=== PATIENT | female | born 2000 | race Caucasian/White ===

== ENCOUNTER 2020-05-27 16:35 | Emergency (ER) | payer OTHER ==
[~2020-05-27] VITALS: Ht 160 cm; Wt 81.8 kg
[2020-05-27] MEDS ORDERED: LEVOTAB11 PO (17:11)
[2020-05-27] MEDS ORDERED: FLUO20CA22 PO (17:11)
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
[2020-05-27 19:15] VITALS: BP 116/68
--- NOTE | 2020-05-29 12:31 | ED PDOC ---
Post-Departure Follow-Up certified letter sent to patient regarding radiology report Danita Robles MD May 29, 2020 12:31
== END 2020-05-27 19:27 | disposition home or self-care (01) ==
LOC: M ED 16:35 → EDBD 16:35 → M ED 19:27
DX: S09.90XA Unspecified injury of head, initial encounter (principal); S16.1XXA Strain of muscle, fascia and tendon at neck level, initial encounter; V49.49XA Driver injured in collision with other motor vehicles in traffic accident, initial encounter; Y92.410 Unspecified street and highway as the place of occurrence of the external cause; F41.9 Anxiety disorder, unspecified; Z79.899 Other long term (current) drug therapy; Z79.3 Long term (current) use of hormonal contraceptives

== ENCOUNTER → 2020-06-15 | Outpatient (REF) | payer OTHER ==
[~2020-06-15] MED LIST: FLUO20CA22 PO; LEVOTAB11 PO
[2020-06-15 18:50] LABS: BASO % 0.8 % (0.0-1.0); EOS # 0.1 10^3/uL (0.0-0.5); EOS % 1.9 % (0.0-3.0); HEMATOCRIT 40.9 % (36.0-47.0); HEMOGLOBIN 13.4 g/dl (12.0-15.5); LYMPH # 1.9 10^3/uL (1.5-5.0); LYMPH % 37.2 % (24.0-44.0); MEAN CORPUSCULAR HEMOGLOBIN 28.1 pg (27.0-33.0); MEAN CORPUSCULAR HGB CONC 32.8 g/dl (32.0-36.5); MEAN CORPUSCULAR VOLUME 85.7 fl (80.0-96.0); MONO # 0.6 10^3/uL (0.0-0.8); MONO % 11.6 % (0.0-5.0); NEUTROPHILS # 2.5 10^3/uL (1.5-8.5); NEUTROPHILS % 48.3 % (36.0-66.0); PLATELET COUNT, AUTOMATED 276 10^3/uL (150-450); RED BLOOD COUNT 4.77 10^6/uL (4.00-5.40); WHITE BLOOD COUNT 5.2 10^3/uL (4.0-10.0)
[2020-06-15 19:13] LABS: FREE T4 0.97 NG/DL (0.78-1.33)
[2020-06-15 19:16] LABS: THYROGLOBULIN ANTIBODY < 15.0 U/ML (<60.0); THYROID PEROXIDASE ANTIBODY < 28.0 U/ML (<60.0)
== END ==
LOC: M LAB REF 16:13
PROVIDERS: ATTEND Physician Assistant
DX: E04.1 Nontoxic single thyroid nodule (principal)

== ENCOUNTER → 2020-06-26 | Outpatient (CLI) | payer MEDICAID, SELFPAY | LOC: M LABSMTC 14:05 | PROVIDERS: ATTEND Pediatrics | DX: Z20.822 Contact with and (suspected) exposure to COVID-19 (principal) ==

== ENCOUNTER → 2020-07-05 | Outpatient (CLI) | payer OTHER, MEDICAID ==
--- NOTE | 2020-07-05 10:31 | REP ---
INDICATION: THYROID NODULE. Nontoxic single thyroid nodule. COMPARISON: Comparison CT study of the cervical spine 27 May 2020.. TECHNIQUE: High-resolution bilateral thyroid sonography. FINDINGS: Thyroid isthmus is 0.2 cm in thickness. Right lobe dimensions are 4.2 x 1.8 x 1.2 cm. Left lobe measures 3.7 x 1.5 x 1.3 cm. There is a hypoechoic solid nodule in the left lobe corresponding to the CT findings. This measures 1.3 x 0.8 x 1.0 cm in diameter. It has well-defined margins. No definite microcalcifications. There is a 3 mm hypoechoic cyst in the upper pole on the left and 2 tiny cysts are seen in the right measuring 3 and 2 mm respectively. No other solid nodule is seen. IMPRESSION: .3 cm solid left lobe thyroid nodule. Ultrasound-guided FNA is recommended. <Electronically signed by Elías Cade > 07/05/20 [id number]
== END ==
LOC: M RAD 09:49
PROVIDERS: ATTEND Physician Assistant
DX: E04.1 Nontoxic single thyroid nodule (principal)

== ENCOUNTER → 2020-09-14 | Outpatient (CLI) | payer MEDICAID, OTHER ==
[~2020-09-14] MED LIST changes: +LIDOCAINE 1% MDV 20ML VIAL As Ordered ONE; +SODIUM BICARBONATE 8.4% INJ 50MEQ 50 ML VIAL As Ordered ONE
[2020-09-14 12:07] VITALS: BP 131/71
--- NOTE | 2020-09-14 16:45 | REP ---
INDICATION: LT THYROID NODULE. COMPARISON: None. TECHNIQUE: The procedure was performed by Krystina López [facility], under the direct supervision of Dr. Bell. The risks and benefits of the procedure were explained to the patient and an informed consent was obtained both verbally and written. Directly prior to the start of the procedure a formal time-out was completed in the procedure room. The left thyroid nodule was localized using ultrasound guidance. The skin was prepped and draped in a sterile fashion. Six mL of buffered lidocaine was used as a local anesthetic. Using ultrasound guidance a 4 fine needle aspirations were obtained using 25 gauge needles. FINDINGS: The patient tolerated the procedure well and there were no immediate complications. After the appropriate amount of monitored convalescence the patient was discharged from the department. IMPRESSION: Ultrasound-guided left thyroid nodule fine needle aspiration. <Electronically signed by Krystina López > 09/14/20 1241 <Electronically signed by Mir Bell > 09/14/20 [id number]
== END ==
LOC: M IRPRO 11:21
PROVIDERS: ATTEND Internal Medicine
DX: E04.2 Nontoxic multinodular goiter (principal); E07.89 Other specified disorders of thyroid

== ENCOUNTER → 2020-11-03 | Outpatient (CLI) | payer OTHER ==
[~2020-11-03] MED LIST changes: -LIDOCAINE 1% MDV 20ML VIAL As Ordered ONE; -SODIUM BICARBONATE 8.4% INJ 50MEQ 50 ML VIAL As Ordered ONE
[2020-11-03 16:49] LABS: BASO % 0.7 % (0.0-1.0); EOS # 0.1 10^3/uL (0.0-0.5); EOS % 1.5 % (0.0-3.0); HEMATOCRIT 38.4 % (36.0-47.0); HEMOGLOBIN 12.6 g/dl (12.0-15.5); LYMPH # 1.8 10^3/uL (1.5-5.0); LYMPH % 33.5 % (24.0-44.0); MEAN CORPUSCULAR HEMOGLOBIN 28.8 pg (27.0-33.0); MEAN CORPUSCULAR HGB CONC 32.8 g/dl (32.0-36.5); MEAN CORPUSCULAR VOLUME 87.7 fl (80.0-96.0); MONO # 0.8 10^3/uL (0.0-0.8); MONO % 13.9 % (2.0-8.0); NEUTROPHILS # 2.7 10^3/uL (1.5-8.5); PLATELET COUNT, AUTOMATED 251 10^3/uL (150-450); RED BLOOD COUNT 4.38 10^6/uL (4.00-5.40); WHITE BLOOD COUNT 5.5 10^3/uL (4.0-10.0)
[2020-11-03 17:16] LABS: INR 1.04; PROTHROMBIN TIME 13.8 SECONDS (12.5-14.3)
== END ==
LOC: M LAB 14:49
PROVIDERS: ATTEND Internal Medicine
DX: E04.1 Nontoxic single thyroid nodule (principal); E07.89 Other specified disorders of thyroid

== ENCOUNTER → 2020-11-18 | Outpatient (CLI) | payer OTHER ==
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
== END ==
LOC: M RAD 08:26
PROVIDERS: ATTEND Physician Assistant Surgical
DX: M25.552 Pain in left hip (principal)

== ENCOUNTER → 2021-01-17 | Outpatient (CLI) | payer OTHER ==
[2021-01-17 11:29] LABS: FREE T4 1.04 NG/DL (0.76-1.46); THYROID STIMULATING HORMONE 0.889 uIU/ML (0.358-3.740)
== END ==
LOC: M LAB 07:44
PROVIDERS: ATTEND Internal Medicine Endocrinology, Diabetes & Metabolism
DX: Z53.9 Procedure and treatment not carried out, unspecified reason (principal)

== ENCOUNTER → 2021-01-17 | Outpatient (CLI) | payer OTHER ==
[~2021-01-17] MED LIST changes: +PROHANCE 279.3MG/ML 15ML VIAL ONE; +PROHANCE 279.3MG/ML 5ML VIAL ONE
--- NOTE | 2021-01-17 14:04 | REP ---
INDICATION: PAIN IN RT KNEE. COMPARISON: Radiographs [facility] orthopedic 12/12/2020. TECHNIQUE: Multiple sequences obtained in the axial, coronal and sagittal planes. Pre and postcontrast T1 fat-sat imaging performed, with the intravenous administration of 16 cc ProHance. FINDINGS: Menisci: Intact, no tear. Cruciate ligaments: Intact. Collateral ligaments: Intact. Extensor mechanism/patellar retinacula: Intact. Cartilage: Smooth, no osteochondral defect. Bone marrow: Normal signal, no edema or occult fracture. Joint fluid: Cysts Popliteal region: No cyst. There is an osteochondroma of the posteromedial aspect of the distal femur. This measures approximately 4 cm in length. Thickness is less than 1 cm. There is no thickened cartilaginous cap or abnormal enhancement, with no signs of malignant transformation. A smaller benign appearing osteo chondroma is seen posteriorly of the distal femur in the midline, just above the femoral notch. No other mass is seen. 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 <Electronically signed by Mir Bell > 01/17/21 0379
== END ==
LOC: M PLAIMG 07:40
PROVIDERS: ATTEND Physician Assistant Surgical
DX: D16.21 Benign neoplasm of long bones of right lower limb (principal); M25.561 Pain in right knee
CPT/HCPCS: 36415; 73721; 84439; 84443; A9576